=== PATIENT | female | born 1965 | race Caucasian/White ===

== ENCOUNTER 2025-02-19 12:14 | Emergency (ER) | payer MEDICARE, MEDICAID, SELFPAY ==
[2025-02-19 12:34] VITALS: BP 144/107; PULSE 104; RESP 17; TEMP 36.4; O2SAT 98
--- NOTE | 2025-02-19 12:39 | XR_ITS ---
Examination: CT brain head without contrast. 2-D sagittal coronal reconstructions Date and time of exam:February 11, 2025 1336 hours COMPARISON: January 29, 2024 INDICATIONS: Generalized headaches and dizziness today CTDI: vol (mGy):49.7 DLP: (mGycm):974 Technique: Multiple CT axial sections of the brain have been obtained, 5 mm slice thickness. Contrast has not been administered. 2-D sagittal, coronal reconstructions have been obtained Low dose protocols were performed. One or more of the following dose reduction techniques were used; automated exposure control, adjustment of the mA and/or KV according to patient size, use of iterative reconstruction technique. Findings: No significant ventricular enlargement. Intra-axial or extra-axial hemorrhage density is not seen. No mass effect or midline shift Basal cisterns are not remarkable. Fourth ventricle is midline. Cranial vault intact. Impression: Negative for acute hemorrhage, mass effect or midline shift Advise clinical correlation follow-up accordingly
--- NOTE | 2025-02-19 12:39 | EKG_ITS ---
[facility] Test Date: 2025-02-19 Pat Name: ALFREDO MENEZES Department: Room: - Gender: Female Help Desk Representative: : 1965 Requested By: Hitesh Durham (CHARLIE) Order Number: [id number] Reading MD: Hitesh Durham ([facility]) Measurements Intervals [place] Rate: 80 P: 40 WY: 123 QRS: 51 QRSD: 87 T: 10 QT: 367 QTc: 424 Interpretive Statements SINUS RHYTHM NONSPECIFIC T-WAVE ABNORMALITY Compared to ECG 10/17/2022 17:48:36 T-wave abnormality now present /store/S0/[id number]/ecg/[id number].pdf
--- NOTE | 2025-02-19 12:39 | PD.EDRME ---
Rapid Medical Screening Exam RME Arrival date/time: 02/19/25 12:14 59-year-old female presents to the emergency department for complaints of headache and blurred vision. Chief Complaint: Nausea/Vomiting/Diarrhea Vital signs: Vital Signs Temperature 97.5 F 02/19/25 12:34 Pulse Rate 104 H 02/19/25 12:34 Respiratory Rate 17 02/19/25 12:34 Blood Pressure 144/107 H 02/19/25 12:34 Pulse Oximetry (%) 98 02/19/25 12:34 Oxygen Delivery Method Room Air 02/19/25 12:34
[2025-02-19 13:14] LABS: Collection Type, Urine Clean Catch
[2025-02-19 13:27] LABS: Bacteria,Urine Rare; Bilirubin,Urine Negative (Negative); Blood,Urine Negative (Negative); Clarity,Urine Clear (Clear/Hazy); Color,Urine Colorless (Lt Yel-Yel); Culture Indicated,Urine Not Indicated; Glucose, Urine Negative (Negative); Ketones,Urine Trace (Negative); Leukocyte Esterase,Urine Negative (Negative); Nitrite,Urine Negative (Negative); PH,Urine 6.0 (5.0-7.0); Protein,Urine Negative (Neg - Trace); RBC,Urine < 1 /hpf (0-3); Specific Gravity,Urine 1.007 (1.001-1.035); Squamous Epithelial Cell,Urine 1 /hpf (0-5); Urobilinogen,Urine Negative mg/dL (0.0-1.0); WBC,Urine < 1 /hpf (0-5)
[2025-02-19 13:28] LABS: Amphetamine/Methamp Scrn,U Negative (Negative); Barbiturate Screen,Urine Negative (Negative); Benzodiazepines Screen,Urine Negative (Negative); Benzoylecgonine Screen, Ur Negative (Negative); Fentanyl Screen,Urine Negative (Negative); Opiate Screen,Urine Negative (Negative); THC Screen,Urine Negative (Negative)
[2025-02-19 13:41] LABS: Basophils # (Auto) 0.1 Thou/mm3 (0.0-0.2); Basophils % (Auto) 1 % (0-2.5); Eosinophils # (Auto) 0.1 Thou/mm3 (0.0-0.5); Eosinophils % (Auto) 1 % (0-10); Hematocrit 46.7 % (36.0-46.0); Hemoglobin 15.8 g/dL (12.0-16.0); Immature Granulocytes Auto 0.01 Thou/mm3 (0.00-0.00); Lymphocytes # (Auto) 3.1 Thou/mm3 (1.0-4.8); Lymphocytes % (Auto) 36 % (10-50); Mean Corpuscular HGB Conc 33.8 g/dl (31.0-37.0); Mean Corpuscular Hemoglobin 30.6 pg (25.0-35.0); Mean Corpuscular Volume 91 fL (80-100); Monocytes # (Auto) 0.6 Thou/mm3 (0.0-0.8); Monocytes % (Auto) 7 % (0-12); Neutrophils # (Auto) 4.7 Thou/mm3 (1.8-7.7); Neutrophils % (Auto) 56 % (37-80); Nucleated Red Blood Cell # 0.00 Thou/mm3 (0.00-0.00); Nucleated Red Blood Cell % 0 /100 WBC (0); Platelet Count 286 Thou/mm3 (140-440); RDW Standard Deviation 44.4 fL (36.4-46.3); Red Blood Count 5.16 Miln/mm3 (4.00-5.20); White Blood Count 8.5 Thou/mm3 (3.6-11.0)
[2025-02-19 13:51] LABS: B-Type Natriuretic Peptide < 20 pg/mL (0-100)
[2025-02-19 13:52] LABS: INR 1.0 (0.9-1.3); Partial Thromboplastin Time 28.8 Seconds (22.0-36.0); Prothrombin Time 11.2 Seconds (9.0-12.2)
[2025-02-19 14:11] LABS: Alanine Aminotransferase < 7 U/L (10-49); Albumin, Serum 4.6 gm/dL (3.5-5.0); Albumin/Globulin Ratio 1.9 (1.2-2.2); Alkaline Phosphatase 71 U/L (46-116); Anion Gap 11 (7-16); Aspartate Amino Transferase 15 U/L (0-34); BUN/Creatinine Ratio 11 Ratio (12-20); Bilirubin,Total 0.3 mg/dL (0.3-1.2); Blood Urea Nitrogen 10 mg/dL (9-23); Calcium 10.3 mg/dL (8.3-10.6); Calcium (Corrected) 10.3 mg/dL (8.5-10.1); Carbon Dioxide 20.2 mMol/L (20.0-31.0); Chloride 110 mMol/L (98-107); Creatinine (Component) 0.9 mg/dL (0.6-1.3); Globulin 2.4 gm/dL (2.3-3.5); Glucose 94 mg/dL (74-106); Magnesium 1.9 mg/dL (1.6-2.6); Osmolality,Calculated 280 (275-295); Potassium 3.8 mMol/L (3.4-5.1); Sodium 141 mMol/L (136-145); Total Protein 7.0 gm/dL (5.7-8.2); Troponin I < 0.002 ng/mL (0.0-0.045); eGFR > 60 See Note
--- NOTE | 2025-02-19 16:24 | PD.EDHA ---
ED Headache RME/HPI General Chief Complaint: Nausea/Vomiting/Diarrhea Stated Complaint: FLORES, neck pain, blurry vision, vomiting Time Seen by Provider: 02/19/25 16:08 Arrival date/time: 02/19/25 12:14 RME / HPI RME / HPI Narrative: 59-year-old female patient with significant history of migraine headache, came in for evaluation regarding headache. Onset of symptoms since yesterday as headache, described as pulsating, associated with nausea, cannot take anything down and vomiting. Patient also complained of blurred vision. Patient denies any upper or lower extremity weakness. Patient is ambulatory. Denies any fever denies any neck pain patient been taking Tylenol Motrin with no relief. Denies any recent head trauma or fall. Related Data Home Medications ?Medication ?Instructions ?Recorded ?Confirmed mirtazapine 15 mg tablet 15 mg PO HS 03/13/22 07/23/23 sertraline 100 mg tablet (Zoloft) 200 mg PO QDAY 08/31/22 07/23/23 amlodipine 2.5 mg tablet 2.5 mg PO QDAY 07/23/23 07/23/23 [id number] 1 cap PO TID 07/23/23 07/23/23 12,000-38,000-60,000 unit capsule,delayed rel (Creon) Previous Rx's ?Medication ?Instructions ?Recorded promethazine 25 mg tablet 25 mg PO TID PRN nausea and 07/16/23 vomiting #20 tabs atorvastatin 20 mg tablet 40 mg (2 x 20 mg) PO HS #60 tabs 07/29/23 cyclobenzaprine 5 mg tablet 5 mg PO TID PRN Muscle Spasms #90 07/29/23 tabs dicyclomine 10 mg capsule 10 mg PO Q4HR PRN Cramps #30 caps 07/29/23 vancomycin 125 mg capsule 125 mg PO QID #32 caps 07/29/23 rizatriptan 10 mg tablet (Maxalt) 10 mg PO Q2H PRN migraine headache 02/19/25 #30 tabs Allergies Allergy/AdvReac Type Severity Reaction Status Date / Time aspirin Allergy Severe SLOWS Verified 02/19/25 12:21 BEATHING DOWN belladonna alkaloids Allergy Severe Swelling Verified 02/19/25 12:21 of Lip/Tongue/Throat Review of Systems Review of Systems Narrative Review of Systems: Review of system reviewed and within normal limits except mentioned in HPI ED Exam Narrative Physical exam: VITAL SIGNS: Reviewed. GENERAL APPEARANCE: Alert and interactive, follows commands, no acute distress, HEAD AND FACE: Non-traumatic. ENT: PERRL, pink conjunctivitis, eyelid no trauma, Mucous membrane moist. NECK: Supple, nontender, no nuchal rigidity. CHEST: No tenderness, no crepitus, no paradoxical movement, no retractions. LUNGS: Clear, well ventilated, symmetric, no rales, no wheezing, no ronchi, no stridor, good breath sounds bilaterally. HEART: Regular rate, regular rhythm, no murmur, no gallops. ABDOMEN: Soft, positive bowel sounds, nondistended, no guarding, nontender, no rebound, no masses, RECTAL: Deferred. GENITAL: Deferred. NEUROLOGICAL: Gross motor function intact sensory function intact, Appropriate for age. MUSCULOSKELETAL: low back nontender, full range of motion. EXTREMITIES: Nontender, full range of motion. SKIN: Color pink, dry, no rash, no lacerations, no abrasions, no contusions. LYMPHATICS: Deferred. Course Quality Measures none Orders Category Date Time Status EKG (ED ONLY) *Do not use* NOW Care 02/19/25 12:[address] head/brain wo con Stat Exams 02/19/25 12:39 Completed EKG (ED Only) Stat Exams 02/19/25 12:39 Draft B-Type Natriuretic Peptide Stat Lab 02/19/25 13:06 Completed CBC Stat Lab 02/19/25 13:06 Completed Comprehensive Metabolic Panel Stat Lab 02/19/25 13:06 Completed Drug Screen,Urine Stat Lab 02/19/25 13:05 Completed Magnesium Stat Lab 02/19/25 13:06 Completed Partial Thromboplastin Time Stat Lab 02/19/25 13:06 Completed Prothrombin Time with INR Stat Lab 02/19/25 13:06 Completed Troponin I Stat Lab 02/19/25 13:06 Completed Urinalysis, C/S if Indicated Stat Lab 02/19/25 13:05 Completed DiphenhydrAMINE INJ [Benadryl Inj] Med 02/19/25 16:21 Discontinued 50 mg IVP X1 ONE Ketorolac Inj [Toradol Inj] Med 02/19/25 16:21 Discontinued 30 mg IVP X1 ONE Metoclopramide Inj [Reglan Inj] Med 02/19/25 16:21 Discontinued 10 mg IVP X1 ONE Ringers Lactated 1000 ml [Lactated Ringers] 1,000 ml Med 02/19/25 16:22 Discontinued IV 999 mls/hr Vital Signs Vital signs: Vital Signs Temperature 97.5 F 02/19/25 12:34 Pulse Rate 104 H 02/19/25 12:34 Respiratory Rate 17 02/19/25 12:34 Blood Pressure 144/107 H 02/19/25 12:34 Pulse Oximetry (%) 98 02/19/25 12:34 Oxygen Delivery Method Room Air 02/19/25 12:34 Headache MDM Narrative MDM Narrative:: 59-year-old female patient with significant history of migraine headache, came in for evaluation regarding headache. Onset of symptoms since yesterday as headache, described as pulsating, associated with nausea, cannot take anything down and vomiting. Patient also complained of blurred vision. Patient denies any upper or lower extremity weakness. Patient is ambulatory. Denies any fever denies any neck pain patient been taking Tylenol Motrin with no relief. Denies any recent head trauma or fall. EKG shows sinus rhythm, ventricular rate of 80 bpm, no ST segment elevation or depression noted. CT scan of the head came back unremarkable. Patient's laboratory workup also came back benign. Urinalysis no UTI. Patient received IV fluids, Toradol Benadryl and Reglan with complete resolution of symptoms. Patient is ambulatory. Patient appears nontoxic and hemodynamically stable .Decision to discharge the patient. The patient/family was given an opportunity to ask questions and understood their discharge instructions. Discharge instructions specifically included follow up provider and time frame, current and/or new medications and possible side effects, indications for sooner follow up or return to the emergency department, and the expected course of current diagnosis. Patient reports feeling better as well and giving evidence of significant clinical improvement, I believe patient is now a candidate for discharge. Patient data External records reviewed:: None Clinical information provided by:: patient Social determinants that could affect healthcare access:: none Patient has the following chronic illnesses:: History of migraine headache How is presenting disease/condition affected by chronic disease/condition?: exacerbated by Evaluation data The following diagnostics were reviewed and interpreted by me:: lab results, radiology exam(s) and EKG tracing(s) Lab and/or radiology exams considered but not ordered:: None Interpretation Summary: See results MDM Medications / Prescriptions Medications or Prescriptions considered but not ordered:: None Medication administrations:: Medication Administration History Discontinued Medications Diphenhydramine HCl (Diphenhydramine Inj 50 Mg/Ml Vial) 50 mg IVP X1 ONE Stop: 02/19/25 16:22 Last Admin: 02/19/25 17:36 Dose: 50 mg Documented By: DIANDRA Lactated Ringer's (Lactated Ringers) 1,000 mls @ 999 mls/hr IV .Q1H1M ONE Stop: 02/19/25 17:22 Last Infusion: 02/19/25 19:06 Dose: Infused Documented By: Admin: 02/19/25 17:38 Dose: 999 mls/hr Documented By: DIANDRA Ketorolac Tromethamine (Ketorolac Inj 30 Mg/Ml Vial) 30 mg IVP X1 ONE Stop: 02/19/25 16:22 Last Admin: 02/19/25 17:37 Dose: 30 mg Documented By: DIANDRA Metoclopramide HCl (Metoclopramide Inj 5 Mg/Ml Vial 2 Ml) 10 mg IVP X1 ONE; Protocol Stop: 02/19/25 16:22 Last Admin: 02/19/25 17:38 Dose: 10 mg Documented By: DIANDRA Benadryl IV fluids Toradol and Reglan Consultations Consultation(s) initiated? (list below): No Diagnosis Differential diagnosis headache: migraine, tension headache and headache Most likely diagnosis given after review of the tests above:: Headache Admission Indicated Admission indicated?: indicated Admission Request Was there a request for admission?: No Disposition Plan Disposition Plan: Discharge Discharge Attestation Discharge Attestation: The patient and all family members were given an opportunity to ask questions and understood the discharge instructions. Discharge instructions specifically effects, indications for sooner follow up or return to the emergency department, and the expected course of current diagnosis. Patient condition: Stable Discharge Plan Plan Patient Disposition: HOME (Self Care) Discharge Disposition comment: stable Prescriptions/Referrals Prescriptions/Med Rec: New rizatriptan [Maxalt] 10 mg tablet 10 mg PO Q2H PRN (Reason: migraine headache) Qty: 30 0RF Rx Instructions: do not exceed 3 doses per 24 hrs No Action mirtazapine 15 mg tablet 15 mg PO HS Patient Comments: TAKE 1 TABLET BY MOUTH AT BEDTIME sertraline [Zoloft] 100 mg Tablet 200 mg PO QDAY promethazine 25 mg tablet 25 mg PO TID PRN (Reason: nausea and vomiting) Qty: 20 0RF amlodipine 2.5 mg Tablet 2.5 mg PO QDAY Creon 12,000-38,000 -60,000 unit capsule,delayed release(DR/EC) 1 cap PO TID Patient Comments: TAKE 1 CAPSULE BY MOUTH THREE TIMES DAILY WITH MEALS atorvastatin 20 mg Tablet 40 mg PO HS Qty: 60 0RF vancomycin 125 mg Capsule 125 mg PO QID Qty: 32 0RF dicyclomine 10 mg Capsule 10 mg PO Q4HR PRN (Reason: Cramps) Qty: 30 0RF cyclobenzaprine 5 mg Tablet 5 mg PO TID PRN (Reason: Muscle Spasms) Qty: 90 0RF Referrals: Temo Siegel FNP [Primary Care Provider] - In 1 week Problem List Clinical Impression: Headache Patient/Caregiver Discharge Instructions Discharge Activity: activity as tolerated Education Materials: Self-Care for Headaches Additional Instructions: Thank you for the opportunity for serving you today. You are stable for discharged . You are advised to: Follow-up with your PCP in 1 to 2 days Return to ED for worsening of symptoms Increase oral fluids Take medication as prescribed Print Language: Welsh Stand Alone Forms: Connie Award Info., Patient Portal Info Letter
[2025-02-19] MEDS: KETOROLAC INJ 30 MG/ML VIAL IVP (17:37)
[2025-02-19] MEDS: METOCLOPRAMIDE INJ 5 MG/ML VIAL 2 ML 10 MG IVP (17:38)
[2025-02-19] MEDS: RINGERS LACTATED 1000 ML 1,000 ML 999 ML IV (17:38)
[2025-02-19 17:39] VITALS: BP 152/109; PULSE 70; RESP 16; TEMP 37.2; O2SAT 99; BMI 27.9
[2025-02-19 18:35] VITALS: BP 139/90; PULSE 83; RESP 17; TEMP 37.2; O2SAT 96
[2025-02-19 19:38] VITALS: BP 154/97; PULSE 70; RESP 18; TEMP 37.1; O2SAT 97
== END 2025-02-19 19:40 | disposition home or self-care (01) ==
PROVIDERS: Nurse Practitioner Primary Care; Emergency Provider Family Medicine
DX: R51.9 Headache, unspecified (principal); R94.31 Abnormal electrocardiogram [ECG] [EKG]
CPT/HCPCS: 36415; 70450; 80053; 80307; 81001; 83735; 83880; 84484; 85025; 85610; 85730; 93005; 96361; 96374; 96375; 99284; J1200; J1885; J2765; J7120